=== PATIENT | male | born 1950 | race Caucasian/White ===

== ENCOUNTER 2019-02-07 16:21 | Emergency (ER) | payer MEDICARE, BC ==
[~2019-02-07] VITALS: Ht 180.3 cm; Wt 100.8 kg
[~2019-02-07 16:21] MED LIST: ASPI-1265 PO; CITA20TA2 PO; HYDR-4353 PO; OMEP40CA37 PO; TRAM50TA2 PO
[2019-02-07 21:15] VITALS: BP 134/99
== END 2019-02-07 21:41 | disposition home or self-care (01) ==
LOC: ER 16:22
DX: I80.01 Phlebitis and thrombophlebitis of superficial vessels of right lower extremity (principal); Z86.711 Personal history of pulmonary embolism; Z88.5 Allergy status to narcotic agent; Z79.82 Long term (current) use of aspirin; Z79.899 Other long term (current) drug therapy
CPT/HCPCS: 93971; 99284

== ENCOUNTER 2019-05-06 14:51 | Emergency (ER) | payer MEDICARE, BC ==
[~2019-05-06] VITALS: Ht 180.3 cm; Wt 120.9 kg
[~2019-05-06 14:51] MED LIST changes: +OMEP40CA13 PO; -OMEP40CA37 PO
--- NOTE | 2019-05-06 15:09 | NUR ---
PT STATES THEY ARE ALLERGIC TO IODINE BUT NOT IV CONTRAST
[2019-05-06 16:38] VITALS: BP 161/76
== END 2019-05-06 16:39 | disposition home or self-care (01) ==
LOC: ER 14:52
DX: S13.4XXA Sprain of ligaments of cervical spine, initial encounter (principal); S29.012A Strain of muscle and tendon of back wall of thorax, initial encounter; Z86.711 Personal history of pulmonary embolism; Z88.5 Allergy status to narcotic agent; Z79.82 Long term (current) use of aspirin; Z79.899 Other long term (current) drug therapy; V89.2XXA Person injured in unspecified motor-vehicle accident, traffic, initial encounter; Y93.89 Activity, other specified; Y92.488 Other paved roadways as the place of occurrence of the external cause; Y99.8 Other external cause status
CPT/HCPCS: 72125; 72128; 72131; 99284

== ENCOUNTER 2021-04-19 14:05 | Outpatient (CLI) | payer MEDICARE, BC ==
[~2021-04-19 14:05] MED LIST changes: -OMEP40CA13 PO; +OMEP40CA21 PO
== END 2021-04-19 23:59 | disposition home or self-care (01) ==
LOC: RAD 14:05
PROVIDERS: ATTEND Orthopaedic Surgery Orthopaedic Surgery of the Spine
DX: M47.817 Spondylosis without myelopathy or radiculopathy, lumbosacral region (principal); M51.26 Other intervertebral disc displacement, lumbar region; M48.07 Spinal stenosis, lumbosacral region
CPT/HCPCS: 72148